=== PATIENT | female | born 1955 | race Caucasian/White ===

== ENCOUNTER 2020-04-30 09:36 | Observation (INO) ==
[2020-04-30] MEDS ORDERED: HYDROmorphone 0.5 MG/0.5 ML SYRINGE IV PRN (09:59)
[2020-04-30] MEDS ORDERED: ONDANSETRON 4 MG/2 ML VIAL IV ONE (09:59)
--- NOTE | 2020-04-30 10:09 | Emergency Department Note ---
Abdominal Pain HPI General Chief Complaint: Abdominal Pain Stated Complaint: Possible bowel obstruction Time Seen by Provider: 04/30/20 09:39 Source: patient Mode of arrival: EMS Limitations: no limitations History of Present Illness HPI Narrative: Narrative: Patient presents with 12 hours of intermittent abdominal pain accompanied by nausea and vomiting. She states the pain is mid epigastrium and periumbilical, comes about every 15 minutes and is frequently associated with nausea and vomiting. Last bowel movement was a small one this morning but she has been constipated for the past few days. She has not vomited blood or black material, has not had a fever or chills, and the pain does not radiate to the back or chest. Pain is not positional or related to activity. Patient has a history of gastroparesis and has an implanted gastric pacemaker. She has had abdominal surgeries including pyloroplasty and both small bowel resection secondary to trauma and a large bowel resection secondary to diverticu losis. Other than the abdominal pain, patient has been well and the general review of systems is otherwise negative. Related Data Home Medications Medication Instructions Recorded Confirmed ondansetron HCl [Zofran] 4 mg PO Q4-6H PRN 07/06/16 03/15/17 polyethylene glycol 3350 [Miralax] 17 gm PO BID 07/06/16 03/15/17 vit C,P-Iy-hknpa-lutein-zeaxan 1 tab PO DAILY 07/06/16 03/15/17 [Ocuvite] conjugated estrogens [Premarin] 0.625 mg .ROUTE 03/09/17 Previous Rx's Medication Instructions Recorded hydrocodone-acetaminophen 1 tab PO Q6H PRN #10 tab 01/12/20 Allergies Allergy/AdvReac Type Severity Reaction Status Date / Time venom-honey bee Allergy Severe Anaphylaxis Verified 04/30/20 09:42 [bee venom (honey bee)] adhesive Allergy Rash Verified 04/30/20 09:42 cefoperazone [From Cefobid] Allergy Hives Verified 04/30/20 09:42 levofloxacin [From Levaquin] Allergy Hives Verified 04/30/20 09:42 metoclopramide [From Reglan] Allergy Hives Verified 04/30/20 09:42 morphine Allergy Other Verified 04/30/20 09:42 piperacillin [From Zosyn] Allergy Hives Verified 04/30/20 09:42 [place] Allergy Hives Verified 04/30/20 09:42 tazobactam [From Zosyn] Allergy Hives Verified 04/30/20 09:42 walnut Allergy Hives Verified 04/30/20 09:42 Review of Systems ROS ROS Narrative: Narrative: Negative except for the symptoms noted in history of present illness [facility] Narrative Patient History Narrative: Narrative: Medical/Surgical/Family History All Active Problems (Updated 04/30/20 @ 13:44 by Sanju Allen MD) Small bowel obstruction (Acute) Presence of gastric pacemaker (Acute) Fall (Acute) Hip sprain (Acute) Abrasion (Acute) Gastroparesis (Acute) Separation of right acromioclavicular joint, type 1 (Acute) Diverticula of colon (Acute) Acute diverticulitis (Acute) Multiple sprains (Acute) Constipation (Acute) Hemorrhoid (Acute) Medical History (Updated 04/30/20 @ 13:44 by Sanju Allen MD) Acute diverticulitis (Acute) Constipation (Acute) Diverticula of colon (Acute) Hemorrhoid (Acute) Multiple sprains (Acute) Separation of right acromioclavicular joint, type 1 (Acute) Surgical History (Updated 01/12/20 @ 06:37 by Perez Martin MD) History of bilateral knee replacement (Acute) Social History Smoking Status: Current some day smoker Exam Narrative Narrative: Narrative: On examination of the abdomen, there is diffuse but moderate distention, diffuse tenderness across the epigastrium and periumbilical regions without true rebound or guarding. Bowel sounds are absent. No masses or organomegaly are palpable. General Limitations: no limitations Head Head: Present atraumatic Expanded ENT Mouth: Present normal external inspection Chest Chest: Present normal inspection and symmetric chest wall rise Respiratory Respiratory: Present normal lung sounds bilaterally Cardiovascular Cardiovascular: Present normal rhythm, tachycardia and normal heart sounds Course Course Course Narrative: CBC and chemistry panel are unremarkable. Patient received IV fluids, Zofran and titrated doses of Dilaudid with symptomatic improvement. CT scan shows some fluid-filled loops of small bowel but was read as not showing a definite small bowel obstruction. At this point I had the patient drink a small amount of water and she immediately had crampy pain and again vomited. Assessment: Clinically, this patient is presenting as a bowel obstruction there are some dilated loops on the CT so she will be admitted to surgery as a partial small bowel obstruction Vital Signs Vital signs: Vital Signs Temperature 97.3 F 04/30/20 09:37 Pulse Rate 118 H 04/30/20 09:37 Respiratory Rate 22 04/30/20 09:37 Blood Pressure 139/93 04/30/20 09:37 Pulse Oximetry (%) 97 04/30/20 09:37 Temperature 97.3 F 04/30/20 09:37 Pulse Rate 102 H 04/30/20 13:33 Respiratory Rate 16 04/30/20 10:30 Blood Pressure 122/97 04/30/20 13:33 Pulse Oximetry (%) 95 04/30/20 13:33 MDM MDM Narrative Medical decision making narrative: Narrative: Lab Data Result diagrams: 04/30/20 10:32 04/30/20 10:32 Labs: Lab Results 04/30/20 04/30/20 Range/Units 10:32 10:32 WBC 15.7 H (4.5-11.0) K/mcL RBC 5.54 H (4.00-5.20) M/mcL Hgb 17.3 H (12.0-15.0) g/dL Hct 52.5 H (36.0-48.0) % MCV 94.8 (80.0-100.0) fL MCH 31.2 (26.0-34.0) pg MCHC 33.0 (31.0-36.0) g/dL RDW 14.0 (11.5-14.5) % Plt Count 223 (140-440) K/mcL MPV 9.2 (7.4-10.4) fL Neut % (Auto) 93.9 H (38.0-78.0) % Lymph % (Auto) 1.7 L (15.0-49.0) % [place] % (Auto) 4.0 (1.0-12.0) % Eos % (Auto) 0.1 (0.0-7.0) % Baso % (Auto) 0.3 (0.0-2.0) % Lymph # (Auto) 0.27 L (1.50-4.80) K/mcL [place] # (Auto) 0.62 (0.10-0.90) K/mcL Eos # (Auto) 0.01 (0.00-0.70) K/mcL Baso # (Auto) 0.04 (0.00-0.20) K/mcL Absolute Neutrophils 14.74 H (1.80-8.00) K/mcL Sodium 140 (133-145) mmol/L Potassium 3.8 (3.3-5.1) mmol/L Chloride 104 (96-108) mmol/L Carbon Dioxide 21 L (22-30) mmol/L Anion Gap 15.0 (8.0-16.0) BUN 14 (8-23) mg/dL Creatinine 0.8 (0.6-1.1) mg/dL GFR Calculation 79 Glucose 168 H (70-105) mg/dL Calcium 9.1 (8.6-10.4) mg/dL Total Bilirubin 1.5 H (0.1-1.0) mg/dL AST 58 H (<32) U/L ALT 42 H (<40) U/L Alkaline Phosphatase 102 (39-117) U/L Total Protein 7.5 (5.9-8.4) gm/dL Albumin 4.5 (3.2-5.2) gm/dL Globulin 3.0 (2.2-3.7) gm/dL Albumin/Globulin Ratio 1.5 (1.0-2.3) Discharge Plan Patient/Caregiver Discharge Instructions Pt seen by [facility]ACH[facility]ER/PA only: No Clinical Impression: Small bowel obstruction Patient Disposition: Xfer As Inpt ([facility]) Follow up with: Osito Dillon MD [Primary Care Provider] - Prescriptions: No Action polyethylene glycol 3350 [Miralax] 17 GM powder in packet 17 gm PO BID RF: 0 ondansetron HCl [Zofran] 4 MG tablet 4 mg PO Q4-6H PRN (Reason: Nausea And Vomiting) RF: 0 vit C,P-St-kglet-lutein-zeaxan [Healthy Eyes Lutein-Zeaxanthin] 1 TAB capsule 1 tab PO DAILY RF: 0 conjugated estrogens [Premarin] 0.625 MG tablet 0.625 mg .Route RF: 0 hydrocodone-acetaminophen 5-325 mg tablet 1 tab PO Q6H PRN (Reason: pain) Qty: 10 RF: 0
[2020-04-30] MEDS: 0.9 % SODIUM CHLORIDE 1,000 ML IV SCH ×5 (10:28→22:51)
[2020-04-30 11:07] LABS: Basophils # (Auto) 0.04 K/mcL (0.00-0.20); Basophils % (Auto) 0.3 % (0.0-2.0); Eosinophils # (Auto) 0.01 K/mcL (0.00-0.70); Eosinophils % (Auto) 0.1 % (0.0-7.0); Hematocrit 52.5 % (36.0-48.0); Hemoglobin 17.3 g/dL (12.0-15.0); Lymphocytes # (Auto) 0.27 K/mcL (1.50-4.80); Lymphocytes % (Auto) 1.7 % (15.0-49.0); Mean Cell Volume 94.8 fL (80.0-100.0); Mean Platelet Volume 9.2 fL (7.4-10.4); Monocytes # (Auto) 0.62 K/mcL (0.10-0.90); Neutrophils % (Auto) 93.9 % (38.0-78.0); Platelet Count 223 K/mcL (140-440); RBC 5.54 M/mcL (4.00-5.20); WBC 15.7 K/mcL (4.5-11.0)
[2020-04-30 11:25] LABS: ALT/SGPT 42 U/L (<40); AST/SGOT 58 U/L (<32); Albumin 4.5 gm/dL (3.2-5.2); Albumin/Globulin Ratio 1.5 (1.0-2.3); Alkaline Phosphatase 102 U/L (39-117); Bilirubin,Total 1.5 mg/dL (0.1-1.0); Blood Urea Nitrogen 14 mg/dL (8-23); Calcium 9.1 mg/dL (8.6-10.4); Carbon Dioxide 21 mmol/L (22-30); Chloride 104 mmol/L (96-108); Glomerular Filtration Rate 79; Glucose 168 mg/dL (70-105)
--- NOTE | 2020-04-30 12:29 | Cat Scan Report ---
CLINICAL INFORMATION: Abdominal pain and distention. Evaluate for obstruction COMPARISON: Abdomen and pelvic CT 07/30/2014 TECHNIQUE: Following enteric contrast, 80 cc of Isovue-370 were injected intravenously, and 60 seconds later, 0.625 mm helical slices were obtained from the mid heart through the subtrochanteric regions. Following reconstruction, 2.5 mm sagittal, coronal and axial reformatted images were processed and reviewed at bone, lung and soft tissue windows. Five minutes later, 0.625 mm helical slices were obtained from the mid heart through the kidneys and viewed at soft tissue windows.The exam was performed using radiation dose optimization techniques including, but not limited to, automated exposure control, adjustment of the mA and/or kV according to patient size and use of iterative reconstruction technique. FINDINGS: Lung bases show only minimal atelectasis in the posterior lower lobes. There is no effusion. Small hiatal hernia noted. The heart is grossly normal. Abdominal images show mild fatty change within the liver, but no focal hepatic lesion. The gallbladder is surgically absent. Common bile duct is mildly dilated, but stable (10 mm). This suggests mild post cholecystectomy papillary stenosis. The pancreas, both kidneys, adrenal glands, spleen and aorta, including aortic branches, are normal in size, configuration and attenuation without focal lesion. There is no free air or adenopathy. Small amount of free fluid is seen in the perisplenic perihepatic and deep true pelvis - new Pelvic images show hysterectomy and oophorectomy changes. The urinary bladder is normal. Partial sigmoid colectomy and partial small bowel resection changes noted. The stomach duodenum and jejunum are normal in caliber. Gastric stimulator electrodes are seen on the anterior wall of the gastric antrum with wires extending and extending anteriorly through the anterior mesenteric fat extending the left lower quadrant abdominal musculature. A battery pack is seen in the deep Camper's fascia. No complication such as wire breakage. There are scattered segments of relatively decompressed small bowel but no evidence of obstructive small bowel pattern. The terminal ileum and colon contains normal amounts of gas and stool. Partial sigmoid colectomy and also rectal small bowel resection changes noted. A 4.4 cm diverticulum projects from the transverse duodenum IMPRESSION: 1. No evidence of small bowel obstruction. 2. Small amount of ascites - new from 2014. Exact etiology unknown. 3. Partial sigmoidectomy and partial small bowel resection changes. Moderate stool present within the rectum. 4. 4.4 cm diverticulum projecting from the transverse duodenum. 5. Small hiatal hernia Interpreted and Authenticated by: Louis Robison 04/30/20
[2020-04-30] MEDS ORDERED: ONDANSETRON 4 MG/2 ML VIAL IV PRN (13:36)
[2020-04-30] MEDS: 0.9 % SODIUM CHLORIDE 10 ML SYRINGE IV SCH ×2 (14:56→22:42)
[2020-04-30] MEDS: CLINDAMYCIN 600 MG in DEXTROSE 5% IN WATER 50 ML IV SCH ×2 (16:05→19:35)
[2020-04-30] MEDS: HYDROmorphone 0.5 MG/0.5 ML SYRINGE IV PRN ×3 (16:12→22:43)
[2020-04-30] MEDS ORDERED: PROMETHAZINE 25 MG/ML VIAL IV PRN (20:35)
--- NOTE | 2020-04-30 20:44 | General Surg History&Physical ---
HPI History of Present Illness Patient information: Note initiated : 04/30/20 at 8:43 pm Service Date, if different from initiated Date: [] Patient: Thea Leiva a 64 y/o F admitted on 04/30/20 for Possible bowel obstruction. Chief Complaint: [] Chief complaint: Abdominal pain nausea and vomiting History of present illness: Ms. Leiva is a 64 year old F who presents with a 5- day history of increasing mid abdominal pain with nausea and vomiting. She has had emesis x10. She has not had flatus for 3days. She noted increasing abdominal bloating. She has a long history of gastroparesis and had a gastric pacemaker placed in 2003. Radiographically she has evidence of constipation in her distal colon and retained fluid in her small bowel. Patient is admitted and will receive enemas followed by MiraLAX to try to decompress her colon. Review of Systems All systems: reviewed and no additional remarkable complaints except as stated PFSH PFSH All Active Problems Small bowel obstruction (Acute) Presence of gastric pacemaker (Acute) Fall (Acute) Hip sprain (Acute) Abrasion (Acute) Gastroparesis (Acute) Separation of right acromioclavicular joint, type 1 (Acute) Diverticula of colon (Acute) Acute diverticulitis (Acute) Multiple sprains (Acute) Constipation (Acute) Hemorrhoid (Acute) Medical History Acute diverticulitis Constipation Diverticula of colon Hemorrhoid Multiple sprains Separation of right acromioclavicular joint, type 1 Surgical History History of bilateral knee replacement Social History smoking status: Current every day smoker MEDS/ALLERGIES Home Medications and Allergies Home Medications Medication Instructions Recorded Confirmed Type ondansetron HCl [Zofran] 4 mg PO Q4-6H PRN 07/06/16 04/30/20 History polyethylene glycol 3350 [Miralax] 17 gm PO BID 07/06/16 04/30/20 History vit C,D-Eq-yybsf-lutein-zeaxan 1 tab PO DAILY 07/06/16 04/30/20 History [Ocuvite] hydrocodone-acetaminophen 1 tab PO Q6H PRN #10 tab 01/12/20 04/30/20 Rx Allergies Allergy/AdvReac Type Severity Reaction Status Date / Time venom-honey bee Allergy Severe Anaphylaxis Verified 04/30/20 09:42 [bee venom (honey bee)] adhesive Allergy Rash Verified 04/30/20 09:42 cefoperazone [From Cefobid] Allergy Hives Verified 04/30/20 09:42 levofloxacin [From Levaquin] Allergy Hives Verified 04/30/20 09:42 metoclopramide [From Reglan] Allergy Hives Verified 04/30/20 09:42 morphine Allergy Other Verified 04/30/20 09:42 piperacillin [From Zosyn] Allergy Hives Verified 04/30/20 09:42 [place] Allergy Hives Verified 04/30/20 09:42 tazobactam [From Zosyn] Allergy Hives Verified 04/30/20 09:42 walnut Allergy Hives Verified 04/30/20 09:42 Physical Examination Vital Signs Vital signs: Temp Pulse Resp BP Pulse Ox 98.7 F 76 16 106/70 91 04/30/20 19:33 04/30/20 19:33 04/30/20 19:33 04/30/20 19:33 04/30/20 19:33 General physical appearance General physical exam: well developed, well nourished, moderate distress and moderate pain Eyes Eye exam: PERRL ENT ENT exam: normal nares, normal mucosa and no hearing loss Head Head exam IM: Present atraumatic, normal inspection and normocephalic Neck Neck exam: no masses, no bruits, trachea midline, no lymphadenopathy and no venous distension Cardiovascular Cardiovascular exam IM: Present normal rate and rhythm, +S1 and +S2; Absent bradycardia and tachycardia Respiratory Respiratory exam: normal expansion, normal respiratory effort and clear to auscultation Abdomen Abdomen: Present soft, non tender, bowel sounds (Hyperactive bowel sounds) and surgical scars (Healed the surgical scars) Integumentary Integumentary: Present no rash, no growths and no abnormal pigmentation Neurologic Neurologic: Present normal coordination and normal sensation Musculoskeletal Musculoskeletal: Present normal gait and normal posture Psychiatric Psychiatric: Present oriented to time, oriented to person, oriented to place, speech is normal and memory intact Results Labs Result diagrams: 04/30/20 10:32 04/30/20 10:32 Labs: Abnormal lab results 04/30/20 04/30/20 Range/Units 10:32 10:32 WBC 15.7 H (4.5-11.0) K/mcL RBC 5.54 H (4.00-5.20) M/mcL Hgb 17.3 H (12.0-15.0) g/dL Hct 52.5 H (36.0-48.0) % Neut % (Auto) 93.9 H (38.0-78.0) % Lymph % (Auto) 1.7 L (15.0-49.0) % Lymph # (Auto) 0.27 L (1.50-4.80) K/mcL Absolute Neutrophils 14.74 H (1.80-8.00) K/mcL Carbon Dioxide 21 L (22-30) mmol/L Glucose 168 H (70-105) mg/dL Total Bilirubin 1.5 H (0.1-1.0) mg/dL AST 58 H (<32) U/L ALT 42 H (<40) U/L Diabetes panel 04/30/20 Range/Units 10:32 Sodium 140 (133-145) mmol/L Potassium 3.8 (3.3-5.1) mmol/L Chloride 104 (96-108) mmol/L Carbon Dioxide 21 L (22-30) mmol/L BUN 14 (8-23) mg/dL Creatinine 0.8 (0.6-1.1) mg/dL Glucose 168 H (70-105) mg/dL Calcium 9.1 (8.6-10.4) mg/dL AST 58 H (<32) U/L ALT 42 H (<40) U/L Alkaline Phosphatase 102 (39-117) U/L Total Protein 7.5 (5.9-8.4) gm/dL Albumin 4.5 (3.2-5.2) gm/dL Calcium panel 04/30/20 Range/Units 10:32 Calcium 9.1 (8.6-10.4) mg/dL Albumin 4.5 (3.2-5.2) gm/dL Pituitary panel 04/30/20 Range/Units 10:32 Sodium 140 (133-145) mmol/L Potassium 3.8 (3.3-5.1) mmol/L Chloride 104 (96-108) mmol/L Carbon Dioxide 21 L (22-30) mmol/L BUN 14 (8-23) mg/dL Creatinine 0.8 (0.6-1.1) mg/dL Glucose 168 H (70-105) mg/dL Calcium 9.1 (8.6-10.4) mg/dL Adrenal panel 04/30/20 Range/Units 10:32 Sodium 140 (133-145) mmol/L Potassium 3.8 (3.3-5.1) mmol/L Chloride 104 (96-108) mmol/L Carbon Dioxide 21 L (22-30) mmol/L BUN 14 (8-23) mg/dL Creatinine 0.8 (0.6-1.1) mg/dL Glucose 168 H (70-105) mg/dL Calcium 9.1 (8.6-10.4) mg/dL Total Bilirubin 1.5 H (0.1-1.0) mg/dL AST 58 H (<32) U/L ALT 42 H (<40) U/L Alkaline Phosphatase 102 (39-117) U/L Total Protein 7.5 (5.9-8.4) gm/dL Albumin 4.5 (3.2-5.2) gm/dL All other labs normal. A/P Assessment and plan (1) Small bowel obstruction: Status: Acute (2) Gastroparesis: Status: Acute (3) Constipation: Status: Acute Qualifiers: Constipation type: unspecified constipation type Qualified Code(s): K59.00 - Constipation, unspecified Narrative A/P Narrative: Soapsuds enemas MiraLAX every 4 hours x 4 doses Follow-up abdominal x-ray Time Spent With Patient Time: Total time spent is greater than 50% in coordination of care (as documented) at patient's floor/unit and/or counseling patient:
[2020-04-30] MEDS: POLYETHYLENE GLYCOL 3350 17 GM PACKET PO SCH (22:43)
[2020-05-01] MEDS: CLINDAMYCIN 600 MG in DEXTROSE 5% IN WATER 50 ML IV SCH ×4 (00:23→16:11)
[2020-05-01] MEDS: HYDROmorphone 0.5 MG/0.5 ML SYRINGE IV PRN ×4 (02:08→13:21)
[2020-05-01] MEDS: POLYETHYLENE GLYCOL 3350 17 GM PACKET PO SCH ×5 (02:43→16:40)
[2020-05-01] MEDS: 0.9 % SODIUM CHLORIDE 10 ML SYRINGE IV SCH ×2 (05:20→13:21)
[2020-05-01] MEDS ORDERED: POLYETHYLENE GLYCOL 3350 17 GM PACKET PO SCH (09:00)
--- NOTE | 2020-05-01 10:17 | XRay Report ---
CLINICAL INFORMATION: FOLLOW -UP OF SMALL BOWEL OBSTRUCTION COMPARISON: None. FINDINGS: There are few loops of minimally dilated small bowel in the central abdomen. The remaining small bowel and colon are normal in caliber. Air-fluid levels are scattered throughout the GI tract. No free air, soft tissue mass or organomegaly. Gastric stimulator electrodes overlie the gastric antrum with wires and battery pack all in stable position without evidence of complication. IMPRESSION: Mild partial small bowel obstruction versus atypical ileus Interpreted and Authenticated by: Louis Robison 05/01/20
[2020-05-01] MEDS: 0.9 % SODIUM CHLORIDE 1,000 ML IV SCH ×2 (10:37→13:20)
--- NOTE | 2020-05-01 16:16 | Discharge Summary ---
Discharge Provider Provider Patient information: Note initiated : 05/01/20 at 4:09 pm Service Date, if different from initiated Date: [] Patient: Thea Leiva 64 y/o F admitted on 04/30/20 for Possible bowel obstruction. Chief Complaint: [] Date of admission: 04/30/20 14:17 Discharge date: 05/01/20 Primary care physician: Osito Dillon Admitting clinician: Mehran Dillon Attending physician on admission: Mehran Dillon Consults: 04/30/20 16:09 Consult to Physician [CONS] Routine Comment: Consulting Provider: Mehran Dillon Reason For Exam: Physician to Consult Attending physician on discharge: Mehran Dillon Discharging clinician: Mehran Dillon COURSE Hospital Course Hospital course: 64-year-old female with 5-day history of increasing mid abdominal pain with associated nausea and vomiting. She had emesis x10. She states that she has not had any flatus since 3 days prior to admission. She has had some increasing abdominal bloating. There is history of gastroparesis. Gastric pacemaker was placed in 2003. Patient has evidence of constipation entered distal colon and retained fluid in her small bowel. She was admitted and will receive enemas to decompress her rectum and MiraLAX to try to emulsify the proximal stool. Discharge diagnosis: Severe constipation Secondary discharge diagnosis: Small bowel obstruction due to severe constipation Gastroparesis Reason for admission: Abdominal pain, recurrent nausea vomiting, severe constipation Procedures: None Pertinent studies/significant findings: CT of abdomen and pelvis with contrast Complications: None Time Spent with Patient Time attestation: Total time spent providing and/or coordinating discharge services: Physical Examination Vital Signs Vital signs: Temp Pulse Resp BP Pulse Ox 97.7 F 65 16 111/71 93 05/01/20 12:00 05/01/20 12:00 05/01/20 12:00 05/01/20 12:00 05/01/20 12:00 General physical appearance General physical exam: well developed, well nourished, moderate distress and moderate pain Eyes Eye exam: PERRL and normal ocular movement ENT ENT exam: normal nares, normal mucosa, no hearing loss and no congestion Head Head exam IM: Present atraumatic, normal inspection and normocephalic Neck Neck exam: no masses, no bruits, trachea midline, no lymphadenopathy and no venous distension Cardiovascular Cardiovascular exam IM: Present normal rate and rhythm, JVD, RRR, +S1 and +S2; Absent gallop and tachycardia Respiratory Respiratory exam: normal expansion, normal respiratory effort and clear to auscultation Abdomen Abdomen: Present soft, non tender, bowel sounds (Hyperactive bowel sounds) and surgical scars Integumentary Integumentary: Present no rash, no growths and no abnormal pigmentation Neurologic Neurologic: Present normal coordination and normal sensation Musculoskeletal Musculoskeletal: Present normal gait and normal posture Psychiatric Psychiatric: Present oriented to time, oriented to person, oriented to place, speech is normal and memory intact Discharge Plan Patient/Caregiver Discharge Instructions Activity: increase activity as tolerated Diet: Regular Diet Instructions: Bowel Obstruction (DC) Prescriptions: No Action polyethylene glycol 3350 [Miralax] 17 GM powder in packet 17 gm PO BID RF: 0 ondansetron HCl [Zofran] 4 MG tablet 4 mg PO Q4-6H PRN (Reason: Nausea And Vomiting) RF: 0 Healthy Eyes Lutein-Zeaxanthin 1 TAB capsule 1 tab PO DAILY RF: 0 hydrocodone-acetaminophen 5-325 mg tablet 1 tab PO Q6H PRN (Reason: pain) Qty: 10 RF: 0 Follow Up Plan Follow up with: Osito Dillon MD [Primary Care Provider] - (Follow up as needed.) Patient Disposition: Home, Self-Care Plan of Treatment: Use MiraLAX up to 4 times daily to prevent constipation Prognosis: Good Rehab Potential: Good I certify that the patient requires SNF services: No Overall status at discharge: patient is back to baseline Discharge Orders: Discharge Order (Routine); Ordered 05/01/20 Ordered By: Mehran Dillno Pending Pending Pending: Resuscitation Status Full Code Diet Full Liquid Diet Start TueMay 01 957 Hydromorphone HCl (Dilaudid) 0.5 mg IV Q2HP PRN; Protocol PRN Reason: Per Pain Protocol Last Admin: 05/01/20 13:21 Dose: 0.5 mg Documented by: Admin: 05/01/20 09:11 Dose: 0.5 mg Documented by: Admin: 05/01/20 05:09 Dose: 0.5 mg Documented by: Admin: 05/01/20 02:08 Dose: 0.5 mg Documented by: Admin: 04/30/20 22:43 Dose: 0.5 mg Documented by: Admin: 04/30/20 19:34 Dose: 0.5 mg Documented by: Admin: 04/30/20 16:12 Dose: 0.5 mg Documented by: TANIKA Sodium Chloride (Sodium Chloride 0.9%) 1,000 mls @ 125 mls/hr IV .Q8H ESTRELLITA Last Admin: 05/01/20 13:20 Dose: 125 mls/hr Documented by: Admin: 05/01/20 10:37 Dose: Not Given Documented by: Infusion: 05/01/20 06:51 Dose: 0 mls/hr Documented by: Admin: 04/30/20 22:51 Dose: 125 mls/hr Documented by: Infusion: 04/30/20 22:51 Dose: 125 mls/hr Documented by: Admin: 04/30/20 16:05 Dose: 125 mls/hr Documented by: TANIKA Clindamycin Phosphate 600 mg/ (Dextrose) 54 mls @ 100 mls/hr IV Q6H ESTRELLITA; Protocol Last Infusion: 05/01/20 13:53 Dose: 0 mls/hr Documented by: Admin: 05/01/20 13:20 Dose: 100 mls/hr Documented by: Infusion: 05/01/20 05:39 Dose: 0 mls/hr Documented by: Admin: 05/01/20 05:06 Dose: 100 mls/hr Documented by: Infusion: 05/01/20 00:56 Dose: 100 mls/hr Documented by: Admin: 05/01/20 00:23 Dose: 100 mls/hr Documented by: Infusion: 04/30/20 20:08 Dose: 100 mls/hr Documented by: Admin: 04/30/20 19:35 Dose: 100 mls/hr Documented by: Infusion: 04/30/20 16:38 Dose: 100 mls/hr Documented by: Admin: 04/30/20 16:05 Dose: 100 mls/hr Documented by: TANIKA Ondansetron HCl (Zofran) 4 mg IV Q6HP PRN PRN Reason: Nausea And Vomiting Last Admin: 04/30/20 22:43 Dose: 4 mg Documented by: TREY Polyethylene Glycol (Miralax) 17 gm PO Q4H [facility] Last Admin: 05/01/20 15:16 Dose: Not Given Documented by: Admin: 05/01/20 11:45 Dose: 17 gm Documented by: Admin: 05/01/20 05:06 Dose: 17 gm Documented by: Admin: 05/01/20 02:43 Dose: 17 gm Documented by: Admin: 04/30/20 22:43 Dose: 17 gm Documented by: TREY Sodium Chloride (Saline Flush) 10 ml IV Q8 [facility] Last Admin: 05/01/20 13:21 Dose: 10 ml Documented by: Admin: 05/01/20 05:20 Dose: Not Given Documented by: Admin: 04/30/20 22:42 Dose: 10 ml Documented by: Admin: 04/30/20 14:56 Dose: Not Given Documented by: TANIKA Shift Summary 05/01/20 04:33 Shift Summary by Stacy Emmanuel Registration Status: Observation Diagnosis Details: SBO, Dr Dillon on the case Brief History: Patient has a history of gastroparesis and has an implanted gastric pacemaker. She has had abdominal surgeries including pyloroplasty and both small bowel resection secondary to trauma and a large bowel resection secondary to diverticulosis. Orientation: Alert and Oriented, makes needs know and uses call light appropriately. Ambulation: SBA, ambulates to Bathroom and room. IV: POC (accessed) Right Chest, NS@120, Cleocin Q6H VS/O2/Pain: VSS, on Room Air, Dilaudid 0.5mg IV Q2H PRN- Last @0500 Toileting: Up to bathroom, voids freely Wounds/drains/Dressing: NONE Discharge Plans: dc home once SBO resolved. Shift Events: patient given Soap sd Enema and now has miralax Q4hs. She has had 1 med BM at this point. Will update at bedside. Initialized on 05/01/20 04:33 - END OF NOTE
[2020-05-01] MEDS ORDERED: HEPARIN SODIUM,PORCINE/PF 500 UNIT/5 ML SYRINGE IV ONE (16:21)
== END 2020-05-01 18:07 | disposition home or self-care (01) ==
LOC: MEDSUR 09:36 → ED 09:36 → MEDSUR 14:14
PROVIDERS: ADMIT Family Medicine Adult Medicine; ATTEND Family Medicine Adult Medicine

== ENCOUNTER 2024-11-09 16:40 | Observation (INO) ==
[2024-11-09] MEDS ORDERED: IOPAMIDOL 100 ML BOTTLE IV ONE (16:41)
[2024-11-09] MEDS: ONDANSETRON 4 MG/2 ML VIAL IV ONE ×2 (17:04→20:06)
[2024-11-09] MEDS: 0.9 % SODIUM CHLORIDE 1,000 ML IV ONE (17:04)
[2024-11-09 17:18] LABS: Basophils # (Auto) 0.03 K/mcL (0.00-0.30); Basophils % (Auto) 0.5 % (0.0-2.0); Eosinophils # (Auto) 0 K/mcL (0.00-0.70); Eosinophils % (Auto) 0 % (0.0-7.0); Hematocrit 40.2 % (34.1-44.9); Hemoglobin 13.1 g/dL (11.2-15.7); Lymphocytes # (Auto) 0.47 K/mcL (1.50-4.80); Lymphocytes % (Auto) 8.1 % (15.5-49.0); Mean Corpuscular HGB Conc 32.6 g/dL (31.0-36.0); Monocytes # (Auto) 0.41 K/mcL (0.10-0.90); Monocytes % (Auto) 7.1 % (1.0-12.0); Neutrophils % (Auto) 84.1 % (38.0-78.0); Platelet Count 175 K/mcL (140-440); RBC 3.94 M/mcL (3.59-5.38); WBC 5.8 K/mcL (4.5-11.0)
[2024-11-09 17:38] LABS: ALT/SGPT 40 U/L (<40); AST/SGOT 87 U/L (<32); Albumin 3.4 gm/dL (3.2-5.2); Albumin/Globulin Ratio 1.3 (1.0-2.3); Alkaline Phosphatase 89 U/L (39-117); Anion Gap 15.0 (8.0-16.0); Bilirubin,Total 1.2 mg/dL (0.1-1.0); Blood Urea Nitrogen 11 mg/dL (8-23); Calcium 8.6 mg/dL (8.6-10.4); Carbon Dioxide 22 mmol/L (22-30); Chloride 102 mmol/L (96-108); Globulin 2.7 gm/dL (2.2-3.7); Glucose 135 mg/dL (70-105); Potassium 3.3 mmol/L (3.3-5.1); Sodium 139 mmol/L (133-145)
[2024-11-09 18:07] LABS: Bacteria,Urine Many /hpf (0); Color,Urine Yellow; Glucose,Urine (UA) Negative (Negative); Ketones,Urine 40 mg/dL (Negative); Leukocyte Esterase,Urine Negative /uL (Negative); PH,Urine 7.0 (5.0-9.0); Protein,Urine 100 mg/dL (Negative); Specific Gravity,Urine 1.025 (1.000-1.035); Urobilinogen,Urine 4.0 mg/dL
[2024-11-09] MEDS: HYDROmorphone 0.5 MG/0.5 ML SYRINGE IV ONE (18:27)
[2024-11-09] MEDS: ONDANSETRON 4 MG/2 ML VIAL ONE (20:06)
[2024-11-09] MEDS: LIDOCAINE 2% URO-JET 10 ML JEL.PF.APP UR ONE (22:07)
[2024-11-10] MEDS: POLYETHYLENE GLYCOL 3350 17 GM PACKET PO ONE (01:17)
[2024-11-10] MEDS: ONDANSETRON 4 MG/2 ML VIAL IV ONE (01:17)
[2024-11-10] MEDS: MAGNESIUM CITRATE 300 ML ORAL.SOL PO ONE (03:05)
[2024-11-10] MEDS: PROCHLORPERAZINE 10 MG/2 ML VIAL IV ONE (05:24)
[2024-11-10] MEDS: 0.9 % SODIUM CHLORIDE 1,000 ML IV ONE (06:49)
[2024-11-10] MEDS ORDERED: PROPOFOL 200 MG/20 ML VIAL IV ONE (08:05)
[2024-11-10] MEDS ORDERED: FLEETS ADULT 1 DOSE ENEMA PR SCH (09:00)
[2024-11-10] MEDS: FAMOTIDINE/PF 20 MG/2 ML VIAL IV SCH (09:57)
[2024-11-10] MEDS: DOCUSATE SODIUM 100 MG CAPSULE PO SCH (09:57)
[2024-11-10] MEDS: ENOXAPARIN 40 MG/0.4 ML SYRINGE SQ SCH (09:57)
[2024-11-10] MEDS: ONDANSETRON 4 MG/2 ML VIAL IV PRN (10:03)
[2024-11-10] MEDS: HYDROmorphone 0.5 MG/0.5 ML SYRINGE IV PRN (10:04)
[2024-11-10] MEDS: 0.9 % SODIUM CHLORIDE 1,000 ML IV SCH (12:36)
[2024-11-10] MEDS: HEPARIN 10 UNITS/ML 5ML FLUSH IV SCH (13:56)
[2024-11-10] MEDS: 0.9 % SODIUM CHLORIDE 10 ML SYRINGE IV SCH ×2 (13:57)
[2024-11-10] MEDS: SENNOSIDES 1 TABLET PO SCH (20:29)
[2024-11-10] MEDS: ACETAMINOPHEN 325 MG TABLET PO PRN (20:33)
[2024-11-11 06:31] LABS: ALT/SGPT 26 U/L (<40); AST/SGOT 39 U/L (<32); Albumin 2.7 gm/dL (3.2-5.2); Albumin/Globulin Ratio 1.4 (1.0-2.3); Alkaline Phosphatase 72 U/L (39-117); Anion Gap 9.0 (8.0-16.0); Bilirubin,Total 1.4 mg/dL (0.1-1.0); Blood Urea Nitrogen 7 mg/dL (8-23); Calcium 7.5 mg/dL (8.6-10.4); Carbon Dioxide 25 mmol/L (22-30); Chloride 105 mmol/L (96-108); Globulin 2.0 gm/dL (2.2-3.7); Glucose 83 mg/dL (70-105); Potassium 3.3 mmol/L (3.3-5.1); Sodium 139 mmol/L (133-145)
[2024-11-11 07:11] LABS: Hematocrit 34.3 % (34.1-44.9); Hemoglobin 11.2 g/dL (11.2-15.7); Mean Corpuscular HGB Conc 32.7 g/dL (31.0-36.0); Platelet Count 119 K/mcL (140-440); RBC 3.32 M/mcL (3.59-5.38); WBC 8.1 K/mcL (4.5-11.0)
[2024-11-11 08:53] LABS: RBC Morphology NORMAL (Normal)
[2024-11-11] MEDS: POLYETHYLENE GLYCOL 3350 17 GM PACKET PO PRN (09:19)
[2024-11-11] MEDS: ACETAMINOPHEN 500 MG TABLET PO PRN (19:26)
[2024-11-12 05:57] LABS: Basophils # (Auto) 0.02 K/mcL (0.00-0.30); Basophils % (Auto) 0.5 % (0.0-2.0); Eosinophils # (Auto) 0.06 K/mcL (0.00-0.70); Eosinophils % (Auto) 1.4 % (0.0-7.0); Hematocrit 34.0 % (34.1-44.9); Hemoglobin 11.0 g/dL (11.2-15.7); Lymphocytes # (Auto) 0.83 K/mcL (1.50-4.80); Lymphocytes % (Auto) 19.7 % (15.5-49.0); Mean Corpuscular HGB Conc 32.4 g/dL (31.0-36.0); Monocytes # (Auto) 0.39 K/mcL (0.10-0.90); Monocytes % (Auto) 9.2 % (1.0-12.0); Neutrophils % (Auto) 69.2 % (38.0-78.0); Platelet Count 134 K/mcL (140-440); RBC 3.28 M/mcL (3.59-5.38); WBC 4.2 K/mcL (4.5-11.0)
[2024-11-12 06:57] LABS: ALT/SGPT 23 U/L (<40); AST/SGOT 28 U/L (<32); Albumin 2.7 gm/dL (3.2-5.2); Albumin/Globulin Ratio 1.4 (1.0-2.3); Alkaline Phosphatase 73 U/L (39-117); Anion Gap 9.0 (8.0-16.0); Bilirubin,Total 1.1 mg/dL (0.1-1.0); Blood Urea Nitrogen 3 mg/dL (8-23); Calcium 7.5 mg/dL (8.6-10.4); Carbon Dioxide 24 mmol/L (22-30); Chloride 108 mmol/L (96-108); Globulin 2.0 gm/dL (2.2-3.7); Glucose 80 mg/dL (70-105); Potassium 2.8 mmol/L (3.3-5.1); Sodium 141 mmol/L (133-145)
[2024-11-12 07:24] VITALS: TEMP 97.1
[2024-11-12 10:02] VITALS: O2SAT 100
[2024-11-12] MEDS: DEXTROSE 5%-1/2NS W/20MEQ KCL 1,000 ML IV SCH (10:35)
[2024-11-12] MEDS: POTASSIUM CHLORIDE 20 MEQ TABLET PO SCH (11:02)
[2024-11-13] MEDS ORDERED: POTASSIUM CHLORIDE 20 MEQ TABLET PO SCH (08:00)
== END 2024-11-12 11:01 | disposition home or self-care (01) ==
LOC: ED 16:40 → MEDSUR 16:40
PROVIDERS: ADMIT Surgery; ATTEND Surgery